=== PATIENT | female | born 1940 | race Caucasian/White ===

== ENCOUNTER 2016-08-21 16:44 | Inpatient (IN) | payer MEDICARE, OTHER ==
[2016-08-21 16:58] VITALS: BP 133/71
--- NOTE | 2016-08-21 17:09 | ED Physician Chart ---
Chief Complaint/HPI - Patient Information Date Seen:: 08/21/16 Time Seen:: 17:02 Chief Complaint:: ?cva History of Present Illness:: pt is chronically vented and dialysis dependent. pt was sent to dialysis today where staff noted a facial droop...call to [facility] was unable to clarify but this seems to be a new finding. pt does have hx of a cva. full code. no known fever. pt did get her dialysis today wo event. Allergies:: Allergies Allergy/AdvReac Type Severity Reaction Status Date / Time No Known Allergies Allergy Verified 08/21/16 16:57 Vitals:: Vital Signs - 8 hr 08/21/16 16:58 BP 133/71 Historian:: EMS, Medical Records Review:: Transfer documents Reviewed, Patient unable to respond Review of Systems - Review of Systems General/Constitutional: No fever, No chills, No weight loss, No weakness, No diaphoresis, No edema, No loss of appetite, Other (nonverbal pt. currently not responsive. hx is severely ltd) Skin: No skin lesions, No rash, No bruising Head: No headache, No light-headedness Eyes: No loss of vision, No pain, No diplopia ENT: No earache, No nasal drainage, No sore throat, No tinnitus Neck: No neck pain, No swelling, No thyromegaly, No stiffness, No mass noted, Other (tracheostomy) Cardio Vascular: No chest pain, No palpitations, No PND, No orthopnea, No edema Pulmonary: No SOB, No cough, No sputum, No wheezing, Other (chronically vent dependent w tracheostomy) GI: No nausea, No vomiting, No diarrhea, No pain, No melena, No hematochezia, No constipation, No hematemesis G/U: No dysuria, No frequency, No hematuria Musculoskeletal: No bone or joint pain, No back pain, No muscle pain, Other ( recent saccral wound was planned to start amikacin today at [facility]) Endocrine: No polyuria, No polydipsia Psychiatric: Other (vented..cant speak) Hematopoietic: No bruising, No lymphadenopathy Allergic/Immuno: No urticaria, No angioedema Neurological: No paresthesia, Seizure (shaking in ed?), No vertigo, Other ( prior cva) Past Medical History - Past Medical History Past Medical History: HTN, DM, CAD, CHF, CVA/TIA, PUD/GERD, ESRD (dialysis dependence), Other (acute/chronic resp failure, sacral wound) Social History: Care Facility Surgical History: other (tracheostomy) Medication: Reviewed Family Medical History - Family Member Daughter History Unknown: Yes Physical Exam - Physical Examination General/Constitutional: Awake, Well-developed, well-nourished, No distress, Non- toxic appearing Head: Atraumatic Eyes: Lids, conjuctiva normal, PERRL, EOMI Skin: Nl inspection, No rash, No skin lesions, No ecchymosis, Well hydrated, No lymphadenopathy ENMT: External ears, nose nl, Nasal exam nl, Lips, teeth, gums nl Other ENMT comments:: tracheostomy site ok left facial droop? w drooling to l side. pupils midrange and reactive but do not track me. pt cant follow commands. some whole body twitching mvt noted briefly .. Neck: Nontender, Full ROM w/o pain, No JVD, No nuchal rigidity, No bruit, No mass, No stridor Respiratory: Nl effort/Exclusion, Clear to Auscultation, No Wheeze/Rhonchi/Rales Cardio Vascular: RRR, No murmur, gallop, rubs, NL S1 S2 GI: No tenderness/rebounding/guarding, No organomegaly, No hernia, Normal BS's, Nondistended, No mass/bruits, No McBurney tenderness : No CVA tenderness Extremities: No tenderness or effusion, Full ROM, normal strength in all extremities, No edema, Normal digits & nails Other Extremities comments:: large deep saccral wound clean no drainage. Other Neuro/Psych comments:: neuro exam difficult given pts alt loc. prior cva by notes. l facial droop. Misc: normal gait, Normal back, No paraspinal tenderness Labs/Radiology/EKG Results - Lab Results Results: Laboratory Tests 08/21/16 08/21/16 08/21/16 17:20 17:20 17:20 WBC 21.3 H* RBC 3.42 L Hgb 11.1 L Hct 32.8 L MCV 95.9 MCH 32.4 H MCHC Differential 33.8 RDW 22.4 H Plt Count 209 MPV 13.6 Band Neutrophils % 8 Neutrophils (Manual) 80 Lymphocytes 8 L Monocytes 4 Eosinophils 0 Nucleated RBCs 2.0 H Platelet Estimate ADEQUATE Platelet Morphology GIANT PLATELETS SEEN Polychromasia 2+ Anisocytosis 1+ RBC Morph Micro Appear ABNORMAL PT INR PTT (Actin FS) Sodium 139 Potassium 3.5 Chloride 101 Carbon Dioxide 23.9 Anion Gap 17.6 H BUN 82 H* Creatinine 2.4 H Est GFR ( Amer) TNP Est GFR (Non-Af Amer) TNP BUN/Creatinine Ratio 34.2 Glucose 81 Calcium 9.1 Total Bilirubin 0.9 AST 28 ALT 19 Alkaline Phosphatase 257 H Troponin I 0.67 H* Total Protein 7.1 Albumin 2.6 L Globulin 4.5 Albumin/Globulin Ratio 0.6 L 08/21/16 18:00 WBC RBC Hgb Hct MCV MCH MCHC Differential RDW Plt Count MPV Band Neutrophils % Neutrophils (Manual) Lymphocytes Monocytes Eosinophils Nucleated RBCs Platelet Estimate Platelet Morphology Polychromasia Anisocytosis RBC Morph Micro Appear PT 14.9 H INR 1.47 H PTT (Actin FS) > 120.0 H* Sodium Potassium Chloride Carbon Dioxide Anion Gap BUN Creatinine Est GFR ( Amer) Est GFR (Non-Af Amer) BUN/Creatinine Ratio Glucose Calcium Total Bilirubin AST ALT Alkaline Phosphatase Troponin I Total Protein Albumin Globulin Albumin/Globulin Ratio - Radiology Results Results: cxr nad/chronic changes ct head chronic changes, no acute bleed. old rt centrum semiovale infarct, old rt cerebral peduncle infarct, lacunar infarcts, asvd, sinusitus - EKG Interpretations EKG Time:: 17:20 Rhythm: nsr [place]: 57 Rate: 86 Comments:: wnl ED Septic Shock - . Is Septic Shock (SBP<90, OR Lactate>4 mmol\L) present?: No - <6hrs of presentation: Vital Signs: Vital Signs - 8 hr 08/21/16 16:58 BP 133/71 Reassessment (Disposition) - Reassessment Reassessment:: ...delay in difficult time reaching DrMega x 3-4 hrs..abx w levaquin ordered (10;12p)case dw dr vicente. not much evidence for a acute cva (but pt is impossible to get a good neuro exam on currently)...however high wbc is of concern and have given 1x levoquin 500 iv...would dec further doses for renal dz. Reassessment Condition:: Improved - Diagnosis Diagnosis:: 1 alt mental status...poss cva 2 seccral decubital ulcer 3 known dilaysis / renal failure pt 4 old large decubital wound - Patient Disposition Admitted to:: ICU Condition at Disposition:: Improved
[2016-08-21 17:46] LABS: HEMATOCRIT 32.8 % (35.0-45.0); HEMOGLOBIN 11.1 gm/dL (11.7-16.1); MEAN CELL VOLUME 95.9 fl (81-100); MEAN CORPUSCULAR HEMOGLOBIN 32.4 pg (27.0-31.0); MEAN CORPUSCULAR HGB CONC 33.8 pg (28.0-36.0); MEAN PLATELET VOLUME 13.6 fl; PLATELET COUNT 209 Th/cmm (150-400); RED BLOOD COUNT 3.42 Mil/cmm (3.80-5.20); RED CELL DISTRIBUTION WIDTH 22.4 % (11.5-20.0)
[2016-08-21 17:54] LABS: WHITE BLOOD COUNT 21.3 Th/cmm (4.8-10.8)
[2016-08-21 18:18] LABS: ANISOCYTOSIS 1+; BAND NEUTROPHILE 8 % (0-10); EOSINOPHIL 0 % (0-5); NEUTROPHILS 80 % (40-80); PLATELET ESTIMATE ADEQUATE (NORMAL); PLATELET MORPHOLOGY GIANT PLATELETS SEEN (NORMAL); POLYCHROMASIA 2+; TOTAL CELLS COUNTED 100
[2016-08-21 18:23] LABS: ALB/GLOB RATIO 0.6 (1.0-1.8); ALKALINE PHOSPHATASE 257 U/L (34-104); ANION GAP 17.6 (7.0-16.0); BILIRUBIN,TOTAL 0.9 mg/dL (0.3-1.0); BUN/CREATININE RATIO 34.2; CALCIUM SERUM 9.1 mg/dL (8.6-10.3); CARBON DIOXIDE 23.9 mEq/L (21.0-31.0); CHLORIDE 101 mEq/L (98-107); CREATININE - SERUM 2.4 mg/dL (0.6-1.2); GLUCOSE 81 mg/dL (70-105); POTASSIUM SERUM 3.5 mEq/L (3.5-5.1); SGOT 28 U/L (13-39); SGPT/ALT 19 U/L (7-52); SODIUM SERUM 139 mEq/L (136-145)
[2016-08-21 18:38] LABS: BUN - UREA NITROGEN 82 mg/dL (7-25)
[2016-08-21] MEDS ORDERED: Levofloxacin 500mg/100mL 500 MG/100 ML BAG IV ONE ×2 (19:47→20:51)
[2016-08-21] MEDS ORDERED: Chlorhexidine Gluconate 0.12% 15mL Mouthwash MM SCH (20:00)
[2016-08-21 20:33] LABS: INR 1.47 (0.5-1.4); PROTHROMBIN TIME (TEST) 14.9 SECONDS (9.5-11.5)
[2016-08-22 05:36] LABS: HEMATOCRIT 35.5 % (35.0-45.0); HEMOGLOBIN 11.7 gm/dL (11.7-16.1); MEAN CELL VOLUME 96.3 fl (81-100); MEAN CORPUSCULAR HEMOGLOBIN 31.6 pg (27.0-31.0); MEAN CORPUSCULAR HGB CONC 32.9 pg (28.0-36.0); PLATELET COUNT 174 Th/cmm (150-400); RED BLOOD COUNT 3.69 Mil/cmm (3.80-5.20); RED CELL DISTRIBUTION WIDTH 22.7 % (11.5-20.0); WHITE BLOOD COUNT 18.7 Th/cmm (4.8-10.8)
[2016-08-22 06:02] LABS: ALB/GLOB RATIO 0.6 (1.0-1.8); ALKALINE PHOSPHATASE 260 U/L (34-104); ANION GAP 16.6 (7.0-16.0); BILIRUBIN,TOTAL 0.9 mg/dL (0.3-1.0); BUN - UREA NITROGEN 79 mg/dL (7-25); BUN/CREATININE RATIO 30.4; CALCIUM SERUM 9.2 mg/dL (8.6-10.3); CARBON DIOXIDE 23.7 mEq/L (21.0-31.0); CHLORIDE 100 mEq/L (98-107); CHOLESTEROL 78 mg/dL (<200); CREATININE - SERUM 2.6 mg/dL (0.6-1.2); GLUCOSE 49 mg/dL (70-105); MAGNESIUM 2.5 mg/dL (1.9-2.7); POTASSIUM SERUM 4.3 mEq/L (3.5-5.1); SGOT 29 U/L (13-39); SGPT/ALT 19 U/L (7-52); SODIUM SERUM 136 mEq/L (136-145); TRIGLYCERIDES 184 mg/dL (<150)
[2016-08-22] MEDS ORDERED: GLUCAGON HCl 1 MG KIT IM PRN (06:25)
[2016-08-22] MEDS ORDERED: Dextrose 50% 50 mL Abboject IVP ONE (06:58)
[2016-08-22] MEDS: Dextrose 50% 50 mL Abboject IVP PRN ×2 (07:04→17:15)
[2016-08-22] MEDS ORDERED: Albuterol Nebulizer 2.5mg/3mL HHN PRN (07:35)
[2016-08-22] MEDS: INSULIN ASPART SLIDING SCALE 100 UNITS/ML UNIT SUBQ SCH ×4 (08:08→21:23)
[2016-08-22 08:10] LABS: BAND NEUTROPHILE 4 % (0-10); NEUTROPHILS 90 % (40-80); TOTAL CELLS COUNTED 100
[2016-08-22 08:11] LABS: ANISOCYTOSIS 1+; PLATELET ESTIMATE ADEQUATE (NORMAL); PLATELET MORPHOLOGY NORMAL (NORMAL); POLYCHROMASIA 1+
[2016-08-22] MEDS: Pantoprazole 40 mg/Packet PO SCH (08:33)
[2016-08-22] MEDS: Insulin Detemir 100 units/mL 10mL Vial SUBQ SCH ×2 (08:33→21:22)
[2016-08-22] MEDS ORDERED: metroNIDAZOLE 500mg/NS 100mL 500 MG/100 ML BAG IV SCH (09:00)
--- NOTE | 2016-08-22 11:18 | History & Physical ---
CHIEF COMPLAINT: Facial droop. HISTORY OF PRESENT ILLNESS: This is a 75-year-old lady with multiple medical problems who resides in [facility]. She has a history of multiple strokes with some level of encephalopathy, chronic respiratory failure, vent dependent with trach placement, history of PEG placement, renal insufficiency on hemodialysis, CAD, CHF, chronic anemia, hypertension and decubitus ulcer on the coccygeal area. The patient was receiving dialysis yesterday when it was noted that she had a facial droop unsure as to which side it was, but the patient arrived via 911 to the Emergency Room where the apparent droop had resolved per family members. She underwent basic lab testing, which yielded a white count of 21.3 and a troponin of 0.67. Given her comorbidities and her current findings, the patient was admitted to ICU for further management and care. PERTINENT FINDINGS ON ADMISSION: Include a CT of the brain showing atrophy, old right centrum semiovale infarct, old right cerebral peduncle infarct, lacunar infarcts, ASVD and sinusitis. The patient at this time appears to be comfortable with no shortness of breath or major congestion. PAST MEDICAL HISTORY: As noted above, also anasarca and insulin-dependent diabetes. PAST SURGICAL HISTORY: Include trach and PEG placement. SOCIAL HISTORY: Does not smoke nor drink, chronically debilitated for the last year or so. Lives at a subacute facility. FAMILY HISTORY: Unremarkable. ALLERGIES: NKDA. OUTPATIENT MEDICATIONS: Tylenol 160 mg q. 4 p.r.n. for pain, albuterol inhalation therapy q. 6 p.r.n. for shortness of breath, ascorbic acid 500 mg every day, detemir insulin 18 units q. 12, she is also on insulin sliding scale, midodrine 10 mg every Saturday and Protonix 40 mg every day. REVIEW OF SYSTEMS: Unable to be done given patient's condition. PHYSICAL EXAMINATION: VITAL SIGNS: Temperature 97.8. She has been afebrile since admission, pulse is 76-80, respirations 12, BP 117/61, satting 100% on 35% FiO2. GENERAL: She is a well-developed, well-nourished female, currently awake on vent and appears to be in no distress. Does not follow commands. Trach in place , midline. NECK: There is no JVD noted. No LAD. CARDIOVASCULAR: Regular rate and rhythm without any murmurs. LUNGS: Decreased at the bases, but overall clear to auscultation. ABDOMEN: Soft, supple, nontender, nondistended, normoactive bowel sounds. EXTREMITIES: There is trace edema in lower extremities. NEUROLOGIC: Not able to be performed. LABORATORY DATA: White count 21.3, H and H 11/32 and a platelet count of 209. INR is 1.47. Chemistry shows a gap of 17, BUN of 82 and a creatinine of 2.4, glucose 81, calcium 9.1, AST 20, ALT 19, alkaline phosphatase 257. Troponins 0.67, albumin 2.6. Triglycerides 184. Cholesterol 78, LDL 33, HDL 22. DIAGNOSTICS: Please refer to the HPI. EKG shows sinus rhythm at a rate of 85. There are atrial premature complexes. X-ray per ER staff interpretation, no acute evidence of infiltrates. IMPRESSION: 1. Leukocytosis. Differential would include infectious etiology, although right now, there is no clear source versus leukomoid reaction. The patient has been pancultured and will follow up with a followup x-ray and sputum C and S. Also, her decubitus ulcer has been cultured. We will also have to rule out any intraabdominal process given her elevated alk phos level. 2. Transient facial drooping, resolved. 3. History of multiple cerebrovascular accidents with encephalopathy. 4. Chronic respiratory failure, appears to be stable. Continue with current vent settings and trach care. Pulmonary eval also be asked for further management. 5. History of end-stage renal disease and Nephrology eval also be asked for. 6. History of hypertension. 7. History of coronary artery disease/congestive heart failure. 8. History of chronic anemia. PLAN: The patient has been admitted to the ICU for further management and care. As mentioned above, she has been pancultured and has been started on Levaquin daily. She will be kept on nebulizer treatments and she also will be kept on her other medications as scheduled for the time being. Given her elevated alk phos, I will ask for a HIDA scan to be done and will also ask for a UA in case the patient still producing urine. Nephrology eval will also be asked for. Daily labs will be drawn and a followup x-ray will be done as mentioned above. [facility]# [id number] FEMI
[2016-08-22] MEDS ORDERED: VTE Chemical Prophylaxis Screen/Admission MC PRN (11:46)
--- NOTE | 2016-08-22 11:56 | Diagnostic Imaging Report ---
Portable chest x-ray HISTORY: Shortness of breath Prior exams are not available for comparison. There is a poor inspiration. The heart appears enlarged. There is increased density in the left lower hemithorax that may be associated with pleural fluid. Underlying pneumonia and/or atelectasis cannot be excluded. Tracheostomy seen. Vascular catheter tip is situated in the upper region of the right atrium. IMPRESSION: 1. Density left lower hemithorax. The findings may be associated with pleural fluid. Underlying consolidation and/or atelectasis cannot be excluded. 2. Vascular catheter tip situated in the upper region of the right atrium 3. Tracheostomy
[2016-08-22] MEDS: metroNIDAZOLE 500mg/NS 100mL 500 MG/100 ML BAG IV SCH ×2 (12:16→18:16)
--- NOTE | 2016-08-22 12:54 | Diagnostic Imaging Report ---
CT scan of the brain without intravenous contrast HISTORY: Stroke, CVA Total DLP equals 693 CTDI equals 35.1 Axial sections were obtained from the base of the skull to the vertex. There is enlargement of ventricular system along with enlargement of cerebral sulci and subarachnoid cisterns reflecting generalized atrophy. Generalized hypodensity seen throughout the supratentorial and periventricular white matter regions. No mass effect. The findings may be associated with chronic small vessel ischemic disease. A somewhat more discrete 1.5 cm hypodense focus is noted within the right parietal white matter region. Findings suggest changes associated with an old infarct. No acute intracerebral hemorrhage. No extra-axial masses or abnormal fluid collections. Mucosal thickening noted in the ethmoid sinuses. IMPRESSION: 1. Generalized cerebral atrophy 2. Extensive supratentorial white matter changes that may be associated with chronic small vessel ischemic disease 3. Focal hypodensity within the right parietal white matter region without mass effect. The findings are most likely associated with an old infarct. 4. Mucosal thickening within the ethmoid sinuses
[2016-08-22] MEDS ORDERED: Pneumococcal Vaccine 0.5 mL Vial IM ONE (14:20)
--- NOTE | 2016-08-22 16:41 | Diagnostic Imaging Report ---
Bilateral lower extremity Doppler arterial ultrasound exam HISTORY: Pain, peripheral vascular disease Sonographic sector images were obtained through the arterial systems of both legs. Associated Doppler data was obtained. The exam of the right leg demonstrates abnormal monophasic waveforms within the common femoral, superficial femoral, popliteal, anterior tibial, posterior tibial, and dorsalis pedis arteries. Decreased velocities noted throughout the arterial system. Sonographic images demonstrate mild to severe diffuse atherosclerotic changes. There is a diminished ankle-brachial index (0.6). The exam of the left leg demonstrates biphasic waveforms within the common femoral artery. Changes consistent with patient's reported superficial femoral bypass graft noted. Biphasic waveforms are seen within the left popliteal, anterior tibial, posterior tibial, and left dorsalis pedis arteries. Diminished velocities noted below the knee. Ankle brachial index equals 0.95). Sonographic images demonstrate mild severe diffuse atherosclerotic changes through the visualized arteries. IMPRESSION: 1. Evidence of mild to severe severe diffuse atherosclerotic changes bilaterally particularly within the right leg. A CT angiographic study would provide additional detail and assessment.
[2016-08-22] MEDS: Chlorhexidine Gluconate 0.12% 15mL Mouthwash MM SCH (21:13)
[2016-08-23] MEDS ORDERED: Heparin Sod 1,000 Units/mL 10ml HD ONE
--- NOTE | 2016-08-23 01:37 | Admit Criteria Form ---
Admit Criteria Forms - Admit Criteria Diagnosis: MENTAL STATUS CHANGE Clinical Indications for Inpatient Care (Place 'X' for any and all applicable criteria): Ongoing inpatient care may be needed for ANY ONE of the following(1)(2)(3)(5)(6) : [ ]I. Suspected serious etiology (eg, medical disorder, [employer] event) of mental status change [ ]II. Danger to self or others not manageable at lower level of care [ ]III. Grave disability (eg, inability to perform self care necessary at lower level of care) [ ]IV. Agitation or inappropriate behavior interfering with care for primary condition (eg, attempting to discontinue lines or drains prematurely, unable to cooperate with respiratory care) [ ]V. Delirium [A] [D][E] as described by ANY ONE of the following(26): [ ]a) Delirium due to alcohol or sedative [F] withdrawal [ ]b) Delirium of uncertain etiology that has not responded to appropriate empiric treatment [ ]c) Delirium that prevents performance of a life-sustaining function (eg, feeding or hydrating oneself) [ X]. General contraindications and/or Inappropriate clinical situations for Observational Care in patients with Mental Status Change, when ANY ONE of the following is required: [X ]a) Prediction of prolongation of LOS based on ANY ONE of the following may be considered as a contraindication for observational care 2, 3, 4, 5, 6, 7, 8, 9, 10, 11 [X ]i) Age > 65 yrs. [ ]ii) Patient arriving by ambulance [ ]iii) Patient with high acuity [ ]iv) Patient requiring vital sign monitoring [ ]v) Patient on IV medication [ ]b) Systolic blood pressures 180mmHg 3,12 [ ]c) Patient with altered mental status including delirium and other alteration of consciousness, (3) [ ]d) Patient whose discharge disposition will be to a intermediate home or rehabilitation home should not be managed in Emergency Department Observation Unit. CMS rule requires 3 days hospital stay before such placement.3,13 [ ]e) Patient with failure to thrive due to broad array of etiologies 3,16,17 [ ]f) Inability to ambulate 3,14 Extended stay beyond goal length of stay for the primary condition may be needed until ALL of the following are present(3)(5): [ ]a) Underlying medical etiology of mental status change is absent, or has been established and adequately treated [ ]b) Danger to self or others is absent or manageable at lower level of care. [ ]c) Behavior crisis management, including physical or chemical restraints, is not required or available at lower level of car [ ]d) Substance or alcohol withdrawal is absent or manageable at lower level of care. [ ]e) Behavioral symptoms (eg, agitation, somnolence, inappropriate behavior) are absent, or are manageable at lower level of care. The original [facility] content created by [facility] has been revised. The portions of the content which have been revised are identified through the use of italic text or in bold, and [facility] has neither reviewed nor approved the modified material. All other unmodified content is copyright [facility]. Please see references footnoted in the original [facility] edition 2016 Admit Criteria Met?: Yes
[2016-08-23] MEDS: metroNIDAZOLE 500mg/NS 100mL 500 MG/100 ML BAG IV SCH (02:46)
--- NOTE | 2016-08-23 04:45 | Consultation ---
The patient of Dr. Hong. Thank you very much Dr. Hong for this consultation. HISTORY OF PRESENT ILLNESS: This is a 75-year-old female who was admitted from the dialysis center after being found to be altered. The patient has history of chronic respiratory failure, ventilator dependent, residential resident, end-stage renal disease on dialysis. The patient was brought in and was found to have significant leukocytosis. Sepsis was suspected. The patient was started on IV antibiotics and cultures were sent and the patient admitted for further treatment and management. PHYSICAL EXAMINATIONS: GENERAL: The patient appears to be doing better, little bit more alert and not in severe distress. VITAL SIGNS: Temperature of 96.0, pulse 91, respiration 17, blood pressure 170/69, saturation is 99-100%. HEENT: Atraumatic, normocephalic. Pupils reactive to light and accommodation. Ears, nose and throat, normal. NECK: Supple. No JVD. CHEST: There are good breath sounds. Few rhonchi in bases. HEART: Regular rate and rhythm. ABDOMEN: Soft, nontender. EXTREMITIES: No edema. IMAGING: Chest x-ray, infiltrate in left lower lobe, possible effusion. LABORATORY DATA: The WBC is 18.7 down from 21.3, hemoglobin 11.7, hematocrit 35.5, platelets 174. Sodium was 136, potassium 4.3, BUN is 79, creatinine 2.6. IMPRESSION: This is a 75-year-old female with: 1. Chronic respiratory failure. 2. End-stage renal disease, on dialysis. 3. Altered level of consciousness. 4. Sepsis. 5. Pneumonia. PLAN: 1. IV antibiotics. 2. Nebulizer treatment. 3. Ventilator support. 4. Hemodialysis. 5. Follow up cultures. I will follow the patient with you. Thank you very much for this consultation. JOB# [id number]
[2016-08-23 05:02] LABS: HEMATOCRIT 32.4 % (35.0-45.0); HEMOGLOBIN 10.5 gm/dL (11.7-16.1); MEAN CELL VOLUME 97.3 fl (81-100); MEAN CORPUSCULAR HEMOGLOBIN 31.5 pg (27.0-31.0); MEAN CORPUSCULAR HGB CONC 32.3 pg (28.0-36.0); MEAN PLATELET VOLUME 11.9 fl; RED BLOOD COUNT 3.33 Mil/cmm (3.80-5.20); RED CELL DISTRIBUTION WIDTH 22.9 % (11.5-20.0); WHITE BLOOD COUNT 18.1 Th/cmm (4.8-10.8)
[2016-08-23 05:13] LABS: ALB/GLOB RATIO 0.6 (1.0-1.8); ALKALINE PHOSPHATASE 218 U/L (34-104); ANION GAP 18.3 (7.0-16.0); BILIRUBIN,TOTAL 0.8 mg/dL (0.3-1.0); BUN/CREATININE RATIO 29.4; CALCIUM SERUM 8.7 mg/dL (8.6-10.3); CHLORIDE 100 mEq/L (98-107); CREATININE - SERUM 3.1 mg/dL (0.6-1.2); GLUCOSE 169 mg/dL (70-105); POTASSIUM SERUM 4.3 mEq/L (3.5-5.1); SGOT 31 U/L (13-39); SGPT/ALT 17 U/L (7-52); SODIUM SERUM 135 mEq/L (136-145)
[2016-08-23 05:39] LABS: BUN - UREA NITROGEN 91 mg/dL (7-25)
--- NOTE | 2016-08-23 06:27 | Consultation ---
NEPHROLOGY CONSULTATION REQUESTING PHYSICIAN: Dr. Indy Hong. REASON FOR CONSULTATION: End-stage renal disease, dialysis status. HISTORY OF PRESENT ILLNESS: The patient is a 75-year-old female, who is well known to our group. She resides in [facility] and dialyzes over at [facility] on Saturday, , and Saturday schedule. She does have chronic respiratory failure, vent dependent with tracheostomy. She also has a history of multiple CVA, chronic vent-dependent respiratory failure, dysphagia with G-tube, coronary artery disease, congestive heart failure, anemia due to chronic kidney disease, hypertension, and decubitus ulcer in a coccygeal area. The patient apparently was getting her dialysis yesterday at [facility] when she was noted to have a facial droop and the patient subsequently was brought in for further evaluation where she was noted to be having leukocytosis and elevated troponin. She was admitted to ICU for further management, and she is currently undergoing a HIDA scan. She tolerated her dialysis otherwise well yesterday, and we are consulted with regards to her dialysis needs. The patient is unable to give any history. REVIEW OF SYSTEMS: A 14-point is unobtainable. The patient is not verbal. PAST MEDICAL HISTORY: As described in the HPI. 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 PAST SURGICAL HISTORY: Includes trach and PEG. SOCIAL HISTORY: No smoking or alcohol. She lives at [facility]. FAMILY HISTORY: Unremarkable. ALLERGIES: No known drug allergies. INPATIENT MEDICATIONS: Reviewed as per the [facility]. PHYSICAL EXAMINATION: VITAL SIGNS: She is afebrile. Heart rate is in the 80s. Respiratory rate is 14, blood pressure 116/66, and saturation 98% on 30% FiO2. GENERAL: The patient is able to open her eyes, otherwise does not appear to have any apparent distress. HEAD AND EYES: Normocephalic. Sclerae are anicteric. NECK: Her trachea is connected to the vent. CARDIOVASCULAR: S1, S2 present and regular with no murmurs. LUNGS: Clear to auscultation anteriorly. ABDOMEN: Soft, obese, and nontender. EXTREMITIES: Do not show any evidence of edema. She does have a right upper chest Perm-A-Cath, which is intact. DIAGNOSTIC DATA: White count is 18.7, hemoglobin 11.7, and platelet count is 174,000. Sodium is 132, potassium 4.3, bicarbonate 23, BUN is 79, creatinine 2.6, calcium 9.2, and magnesium 2.5. Head CT is showing atrophy, generalized. Chest x-ray, left lower hemithorax density. ASSESSMENT AND PLAN: 1. End-stage renal disease with dialysis status secondary to diabetic glomerulosclerosis and hypertensive nephrosclerosis to dialyze per schedule Saturday, , and Saturday. We will arrange for dialysis tomorrow. 2. Anemia due to chronic kidney disease. Hemoglobin is above goal. No indication for Epogen at this time. 3. Clostridium difficile colitis. Continue with IV Flagyl per primary. 4. Sepsis secondary to Clostridium difficile. Continue antibiotics and monitor. 5. Chronic encephalopathy, monitor, stable. 6. Chronic vent-dependent respiratory failure. Continue with vent management per Pulmonary. 7. Long-term insulin use. Continue to monitor and avoid hypoglycemia. 8. Type 2 diabetes mellitus with renal manifestations, stable. Continue with monitoring. 9. Transient facial drooping, which is resolved. No stroke on CT scan. We will continue with monitoring. This time, I would like to thank Dr. Hong for the consultation. We will follow the patient with you. Please call if any questions or concerns. Thank you very much for allowing us to participate in this patient's care. [facility]# [id number] FEMI
[2016-08-23] MEDS: INSULIN ASPART SLIDING SCALE 100 UNITS/ML UNIT SUBQ SCH ×4 (06:43→21:30)
[2016-08-23] MEDS: Chlorhexidine Gluconate 0.12% 15mL Mouthwash MM SCH ×5 (07:30→20:05)
[2016-08-23] MEDS: Insulin Detemir 100 units/mL 10mL Vial SUBQ SCH ×2 (08:09→21:28)
[2016-08-23] MEDS: Pantoprazole 40 mg/Packet PO SCH (08:10)
[2016-08-23 08:16] LABS: ANISOCYTOSIS 1+; BAND NEUTROPHILE 7 % (0-10); EOSINOPHIL 1 % (0-5); METAMYELOCYTE 1 % (0-0); NEUTROPHILS 80 % (40-80); PLATELET ESTIMATE DECREASED PLATELETS (NORMAL); POLYCHROMASIA 1+; TOTAL CELLS COUNTED 100
[2016-08-23 08:17] LABS: PLATELET MORPHOLOGY NORMAL (NORMAL)
[2016-08-23 09:35] LABS: pH 7.47 (7.35-7.45)
[2016-08-23 09:36] LABS: ABG SOURCE Arterial; ALLEN TEST PASS; BE(B) -0.3 mmol/L (-3.0-3.0); CRITICAL VALUES REPORTED BY PW; FIO2 30; HCO3 22.6 mmol/L (20.0-26.0); MECH RATE 12; MECH VT 500
--- NOTE | 2016-08-23 10:08 | Diagnostic Imaging Report ---
CHEST X-RAY: AP view INDICATION: Congestion COMPARISON: Chest x-ray 08/21/2016 FINDINGS: Support devices are stable. Slight improvement in congestive changes are seen. Small bilateral effusions are noted. Cardiomegaly is noted with atherosclerosis. IMPRESSION: Slight improvement in congestive changes Small bilateral effusions Cardiomegaly and atherosclerotic vascular disease.
--- NOTE | 2016-08-23 10:14 | Diagnostic Imaging Report ---
Nuclear medicine HIDA scan HISTORY: Elevated alkaline phosphatase levels COMPARISON: None Technique/procedure: 5.0 mCi of technetium labeled Choletec was administered intravenously and multiple scintigraphic images were obtained for up to 1 hour. FINDINGS: Prompt hepatic uptake is demonstrated. Gallbladder uptake is seen at 45 minutes. Small bowel uptake was seen at 45 minutes to 1 hour. IMPRESSION: No evidence of acute cholecystitis.
--- NOTE | 2016-08-23 11:12 | General Progress Note ---
Subjective - Review of Systems Service Date: 08/23/16 Events since last encounter: Pt remains alert and awake on ventilator via tracheostomy this morning, otherwise going for sacral decubitus ulcer debridement this afternoon. For HD today. Objective - Results Result Diagrams: 08/23/16 04:30 08/23/16 04:30 Recent Labs: Laboratory Last Values WBC 18.1 Th/cmm (4.8-10.8) H 08/23/16 04:30 RBC 3.33 Mil/cmm (3.80-5.20) L 08/23/16 04:30 Hgb 10.5 gm/dL (11.7-16.1) L 08/23/16 04:30 Hct 32.4 % (35.0-45.0) L 08/23/16 04:30 MCV 97.3 fl (81-100) 08/23/16 04:30 MCH 31.5 pg (27.0-31.0) H 08/23/16 04:30 MCHC Differential 32.3 pg (28.0-36.0) 08/23/16 04:30 RDW 22.9 % (11.5-20.0) H 08/23/16 04:30 Plt Count 174 Th/cmm (150-400) 08/22/16 04:56 MPV 11.9 fl 08/23/16 04:30 Band Neutrophils % 7 % (0-10) 08/23/16 04:30 Neutrophils (Manual) 80 % (40-80) 08/23/16 04:30 Lymphocytes 4 % (20-50) L 08/23/16 04:30 Monocytes 7 % (2-10) 08/23/16 04:30 Eosinophils 1 % (0-5) 08/23/16 04:30 Metamyelocytes 1 % (0-0) H 08/23/16 04:30 Nucleated RBCs 3.0 % (0-0) H 08/23/16 04:30 Platelet Estimate DECREASED PLATELETS (NORMAL) 08/23/16 04:30 Platelet Morphology NORMAL (NORMAL) 08/23/16 04:30 Polychromasia 1+ 08/23/16 04:30 Anisocytosis 1+ 08/23/16 04:30 RBC Morph Micro Appear ABNORMAL (NORMAL) 08/23/16 04:30 PT 14.9 SECONDS (9.5-11.5) H 08/21/16 18:00 INR 1.47 (0.5-1.4) H 08/21/16 18:00 PTT (Actin FS) > 120.0 SECONDS (26.0-38.0) H* 08/21/16 18:00 Specimen Source Arterial 08/23/16 09:15 Sample Site Right Radial 08/23/16 09:15 pH 7.47 (7.35-7.45) H 08/23/16 09:15 pCO2 31.0 mmHg (35.0-45.0) L 08/23/16 09:15 pO2 128.0 mmHg (80.0-100.0) H 08/23/16 09:15 HCO3 22.6 mmol/L (20.0-26.0) 08/23/16 09:15 Base Excess -0.3 mmol/L (-3.0-3.0) 08/23/16 09:15 O2 Saturation 99.0 % (92.0-100.0) 08/23/16 09:15 Jorge Test PASS 08/23/16 09:15 Vent Rate 12 08/23/16 09:15 Inspired O2 30 08/23/16 09:15 Tidal Volume 500 08/23/16 09:15 PEEP 5 08/23/16 09:15 Critical Value PW 08/23/16 09:15 Sodium 135 mEq/L (136-145) L 08/23/16 04:30 Potassium 4.3 mEq/L (3.5-5.1) 08/23/16 04:30 Chloride 100 mEq/L (98-107) 08/23/16 04:30 Carbon Dioxide 21.0 mEq/L (21.0-31.0) 08/23/16 04:30 Anion Gap 18.3 (7.0-16.0) H 08/23/16 04:30 BUN 91 mg/dL (7-25) H* 08/23/16 04:30 Creatinine 3.1 mg/dL (0.6-1.2) H 08/23/16 04:30 Est GFR ( Amer) TNP 08/23/16 04:30 Est GFR (Non-Af Amer) TNP 08/23/16 04:30 BUN/Creatinine Ratio 29.4 08/23/16 04:30 Glucose 169 mg/dL (70-105) H 08/23/16 04:30 POC Glucose 109 MG/DL (70 - 105) H 08/23/16 11:00 Calcium 8.7 mg/dL (8.6-10.3) 08/23/16 04:30 Magnesium 2.5 mg/dL (1.9-2.7) 08/22/16 04:56 Total Bilirubin 0.8 mg/dL (0.3-1.0) 08/23/16 04:30 AST 31 U/L (13-39) 08/23/16 04:30 ALT 17 U/L (7-52) 08/23/16 04:30 Alkaline Phosphatase 218 U/L (34-104) H 08/23/16 04:30 Troponin I 0.67 ng/mL (0.01-0.05) H* 08/21/16 17:20 Total Protein 6.4 gm/dL (6.0-8.3) 08/23/16 04:30 Albumin 2.4 gm/dL (3.7-5.3) L 08/23/16 04:30 Globulin 4.0 gm/dL 08/23/16 04:30 Albumin/Globulin Ratio 0.6 (1.0-1.8) L 08/23/16 04:30 Triglycerides 184 mg/dL (<150) H 08/22/16 04:56 Cholesterol 78 mg/dL (<200) 08/22/16 04:56 LDL Cholesterol Direct 33 mg/dL (75-193) L 08/22/16 04:56 HDL Cholesterol 22 mg/dL (23-92) L 08/22/16 04:56 Lipase 18 U/L (11-82) 08/22/16 04:56 TSH 3.51 uIU/ml (0.34-5.60) 08/22/16 04:56 - Physical Exam Vitals and I&O: Vital Signs Temp 97.1 F 08/23/16 08:00 Pulse 99 08/23/16 10:44 Resp 16 08/23/16 10:00 BP 122/67 08/23/16 10:00 Pulse Ox 100 08/23/16 10:44 Intake & Output 08/22/16 08/23/16 08/23/16 18:59 06:59 18:59 Intake Total 300 450 50 Output Total 100 1 Balance 200 449 50 Intake: Intake, IV Amount 150 150 50 Cefepime 1 gm In Dextrose 50 50 50 5% 50 ml @ 100 mls/hr IV Q12HR [facility] Rx#:[id number] metroNIDAZOLE 500mg/NS 100 100 100mL 500 mg In 100 ml @ 100 mls/hr IV Q8H [facility] Rx# :[id number] Tube Feeding 150 300 Output: Urine 0 0 Stool 100 1 Other: Stool Characteristics Liquid Liquid Active Medications: Current Medications Acetaminophen (Tylenol 650mg/20.3ml Suspension) 160 mg PO Q4HR PRN PRN Reason: pain Albuterol Sulfate (Albuterol 2.5mg/3ml Neb Ud) 2.5 mg HHN Q6HR PRN PRN Reason: Shortness of Breath Stop: 10/21/16 07:34 Ascorbic Acid (Vitamin C) 500 mg PO DAILY [facility] Stop: 10/21/16 08:59 Last Admin: 08/23/16 08:09 Dose: Not Given Chlorhexidine Gluconate (Peridex) 15 ml MM 08,1999 [facility] Stop: 10/21/16 19:59 Last Admin: 08/23/16 07:30 Dose: 15 ml Dextrose (D50w) 50 ml IVP PRN PRN PRN Reason: Blood Glucose less than 70 Stop: 10/21/16 06:24 Last Admin: 08/22/16 17:15 Dose: 50 ml Dextrose (Glutose 40%) 18.75 gm PO PRN PRN PRN Reason: Blood Glucose less than 70 Stop: 10/21/16 06:24 Glucagon (Glucagen) 1 mg IM PRN PRN PRN Reason: Blood Glucose less than 70 Stop: 10/21/16 06:24 Cefepime HCl 1 gm/ Dextrose 50 mls @ 100 mls/hr IV Q12HR [facility] Stop: 10/21/16 08:59 Last Infusion: 08/23/16 08:35 Dose: Infused Vancomycin HCl 1.25 gm/ Sodium (Chloride) 250 mls @ 165 mls/hr IV 1000 ONE Stop: 08/23/16 11:30 Insulin Aspart (Novolog Insulin Sliding Scale) 0 units SUBQ ACHS [facility] PRN Reason: Protocol Stop: 10/21/16 07:29 Last Admin: 08/23/16 06:43 Dose: Not Given Insulin Detemir (Levemir Insulin) 18 units SUBQ Q12HR [facility] PRN Reason: Protocol Stop: 10/21/16 08:59 Last Admin: 08/23/16 08:09 Dose: Not Given Midodrine (Proamatine) 10 mg PO QTUE [facility] Stop: 10/20/16 22:44 Last Admin: 08/22/16 03:52 Dose: 10 mg Miscellaneous (Clinical Monitoring) 1 ea PRN PRN PRN Reason: RENAL DOSING Stop: 10/21/16 07:35 Miscellaneous (Vte Chemical Prophylaxis Screen/ Admission) 1 ea PRN PRN PRN Reason: PROTOCOL Stop: 10/21/16 11:45 Miscellaneous (Vancomycin Iv Per Pharmacy) 1 ea PRN [facility] Stop: 10/22/16 08:44 Pantoprazole Sodium (Protonix) 40 mg PO DAILY [facility] Stop: 10/21/16 08:59 Last Admin: 08/23/16 08:10 Dose: Not Given General: Alert HEENT: Atraumatic Neck: Supple Cardiovascular: Regular rate Lungs: Clear to auscultation Abdomen: Bowel sounds, Soft Extremities: Edema (sl) - Procedures Procedures: Procedures Procedure Code Date RESPIRATORY VENTILATION, LESS THAN 24 CONSECUTIVE HOURS [id number] 08/21/16 VENT MGMT INPAT INIT DAY 35081 08/21/16 Assessment/Plan - Assessment Assessment: ESRD on HD, TTS Anemia secondary to ESRD Renal osteodystrophy Sacral decubitus ulcer - Plan Plan: HD today after OR, labs appear to be in range, K nl. OK to proceed to surgery w/ o HD prior from renal standpoint BP controlled, HGB in range, no need for MARTINEZ at this time monitor Continue HD TTS
[2016-08-23] MEDS ORDERED: ISOFLURANE 100 ML BOTTLE INH ONE (12:25)
[2016-08-23] MEDS ORDERED: Meperidine 25 mg/mL 1mL Syr IVP PRN (13:49)
[2016-08-23] MEDS ORDERED: Lactated Ringer 1,000 ML IV SCH (14:00)
--- NOTE | 2016-08-23 14:51 | History & Physical ---
REFERRING PHYSICIAN: Dr. Hong. REASON FOR CONSULTATION: Decubitus ulcer. Thank you for referring this patient. This 75-year-old female who comes in with chief complaint of facial droop. She had a history of CVA in the past. The CT of the brain on this admission shows atrophy. No new infarct. Additional problems include in the last 2 weeks, development of sacral decubitus ulcer. She is on the vent via tracheostomy. There is a PEG in place for feeding. PAST MEDICAL HISTORY: She has history of CHF, chronic kidney, hypertension, and hemodialysis treatment. LABORATORY STUDIES: On this admission, WBC elevated to 18,000, hemoglobin 10.5. Chemistry: BUN is 91, creatinine of 3.1, potassium is normal at 4.3. PHYSICAL EXAMINATION: GENERAL: The patient is a poorly responsive. Family is at bedside. SKIN: Turning the patient underside, there is a large decubitus ulcer in the sacrum measuring approximately 15 cm in its greatest diameter. Gilson necrotic tissues are noted. The patient is incontinent. IMPRESSION: 1. Stage IV sacral decubitus ulcer. 2. History of end-stage renal disease, on hemodialysis. 3. Respiratory failure, on vent. 4. PEG placement for feeding. RECOMMENDATIONS: This patient will need excisional debridement of the sacral decubitus ulcer with application of wound VAC. If patient can tolerate diverting colostomy, this would be ideal. ____ to grandson and he has agreed to sign the consent for surgery. JOB# [id number]
--- NOTE | 2016-08-23 18:21 | Operative Report ---
PREOPERATIVE DIAGNOSES: 1. Stage IV sacral decubitus ulcer. 2. End-stage renal disease. 3. Diabetes mellitus. 4. Respiratory failure, on vent via trach. POSTOPERATIVE DIAGNOSES: 1. Stage IV sacral decubitus ulcer. 2. End-stage renal disease. 3. Diabetes mellitus. 4. Respiratory failure, on vent via trach. Size of ulcer is 12 x 15 cm, depth of the ulcer all the way to the sacral bone. ESTIMATED BLOOD LOSS: 5 mL. OPERATION DONE: 1. Excisional debridement. 2. Partial excision of protruding sacral bone. 2. Application of wound VAC. SURGEON: Vinny Goldman M.D. ANESTHESIA: MAC. ANESTHESIOLOGIST: Butch Gaines M.D. DESCRIPTION OF PROCEDURE: The patient was given IV sedation. She was then placed in the right lateral decubitus position. The ulcer was prepped with Betadine and draped in appropriate fashion. The patient is well sedated and poorly responsive. The excisional debridement was carried out without difficulty with the patient nonreacting to the procedure. Excision of the tissues was carried all the way down to the bone where a part of the coccyx was protruding. This was excised to allow for better healing. Following satisfactory hemostasis, a silver sponge was applied and connected to wound VAC. The patient tolerated the procedure well. JOB# [id number]
[2016-08-23] MEDS ORDERED: Levofloxacin 250mg/50mL 250 MG/50 ML BAG IV SCH (21:00)
[2016-08-24 05:08] LABS: HEMOGLOBIN 9.7 gm/dL (11.7-16.1); MEAN CELL VOLUME 99.2 fl (81-100); MEAN CORPUSCULAR HEMOGLOBIN 33.2 pg (27.0-31.0); MEAN CORPUSCULAR HGB CONC 33.5 pg (28.0-36.0); MEAN PLATELET VOLUME 11.6 fl; PLATELET COUNT 141 Th/cmm (150-400); RED BLOOD COUNT 2.92 Mil/cmm (3.80-5.20); RED CELL DISTRIBUTION WIDTH 22.4 % (11.5-20.0); WHITE BLOOD COUNT 15.1 Th/cmm (4.8-10.8)
[2016-08-24 05:51] LABS: ANION GAP 18.5 (7.0-16.0); BUN - UREA NITROGEN 65 mg/dL (7-25); CALCIUM SERUM 8.3 mg/dL (8.6-10.3); CARBON DIOXIDE 20.8 mEq/L (21.0-31.0); CHLORIDE 99 mEq/L (98-107); CREATININE - SERUM 2.5 mg/dL (0.6-1.2); GLUCOSE 367 mg/dL (70-105); POTASSIUM SERUM 3.3 mEq/L (3.5-5.1); SODIUM SERUM 135 mEq/L (136-145)
[2016-08-24 06:07] LABS: ANISOCYTOSIS 1+; BAND NEUTROPHILE 6 % (0-10); BASOPHIL 1 % (0-3); CORRECTED WBC 13.9 Th/cmm (4.8-10.8); NEUTROPHILS 84 % (40-80); PLATELET MORPHOLOGY NORMAL (NORMAL); POLYCHROMASIA 1+; TOTAL CELLS COUNTED 100
[2016-08-24 06:08] LABS: PLATELET ESTIMATE DECREASED PLATELETS (NORMAL)
[2016-08-24] MEDS: INSULIN ASPART SLIDING SCALE 100 UNITS/ML UNIT SUBQ SCH ×4 (06:47→21:18)
[2016-08-24] MEDS: Chlorhexidine Gluconate 0.12% 15mL Mouthwash MM SCH ×4 (08:00→20:02)
[2016-08-24] MEDS: Insulin Detemir 100 units/mL 10mL Vial SUBQ SCH ×2 (09:00→21:19)
[2016-08-24] MEDS: Pantoprazole 40 mg/Packet PO SCH (09:00)
[2016-08-24] MEDS: KCL 20mEq/100mL Premix 20 MEQ/100 ML PIGGYBACK IV SCH ×3 (11:13→13:44)
[2016-08-24] MEDS ORDERED: Probiotic Screen MC PRN (14:48)
[2016-08-24] MEDS ORDERED: AMIKACIN IV SCH (17:00)
[2016-08-24] MEDS ORDERED: DEXTROSE 5% IV SCH (17:00)
--- NOTE | 2016-08-24 22:23 | Discharge Summary ---
ADMITTING DIAGNOSES: 1. Leukocytosis. 2. Stage IV infected decubitus ulcer. 3. Transient facial drooping. 4. Elevated troponins. SECONDARY DIAGNOSES: 1. History of multiple cerebrovascular accidents with mild chronic encephalopathy. 2. Chronic respiratory failure, on vent and tracheostomy care. 3. History of end-stage renal disease, on hemodialysis. 4. Essential hypertension. 5. History of coronary artery disease. 6. History of congestive heart failure. 7. History of chronic anemia. DISCHARGE DIAGNOSES: 1. Leukocytosis, improved. 2. Stage IV infected decubitus ulcer status post debridement. 3. Resolved facial drooping. CONSULTANTS: Dr. Goldman, General Surgery and Dr. Valdez, Pulmonary Medicine. Dr. Alonso, Nephrology. ZAY Rainey MAJOR PROCEDURES: Head CT on 08/21/2016, generalized atrophy, extensive supratentorial white matter changes, that might be associated with chronic small vessel ischemic disease, focal hypodensity in the right parietal white matter region without mass effect consistent with an old infarct. There was a HIDA scan done on 08/22/2016, negative for acute cholecystitis. There was an arterial duplex ultrasound of lower extremities showing evidence of [id number] diffuse atherosclerotic changes bilaterally, particularly on the right leg. There was a sacral decubitus ulcer, stage IV, debridement done by Dr. Goldman with no complications. It was excisional debridement. Partial excision of protruding sacral bone and application of a wound bag. BRIEF HOSPITAL COURSE: This is a 75-year-old female who presented from the [facility] for evaluation of facial droop, which was more noticeable than her baseline. Of note, she has multiple medical problems. Please see above. She came into the ER and basic workup revealed a white count of 21.3, a troponin of 0.67, and CT that was essentially negative, please see above. Her facial droop had resolved by the time she came into the ER. Family numbers stated that she appeared to be within her normal physical appearance. The patient was admitted to the ICU and was placed on empiric antibiotics for possible pneumonia and decubitus wound infection. Pulmonary as well as Nephrology eval were asked for, for management of vent and management of hemodialysis. She also was noted to have mild elevation of her alkaline phosphatase. Therefore, a HIDA scan was also done. Her white count did improve by hospital day #2. It went down to 18.7. Given the extent of her decubitus ulcer, a surgical eval was also asked for and the debridement was then as mentioned above. Post-debridement, she has remained stable with no spikes in temperature and her white count has gone down to 15.1. DISCHARGE MEDICATIONS: Tylenol 160 q.4 hours p.r.n. for pain, DuoNeb q.6h. p.r.n. for shortness of breath, vitamin C 500 mg every day, cefepime 1 g q.12h. for 10 days, peridex 15 mL every day, insulin sliding scale, Levemir 18 units q.12h., proamatine 10 mg every Saturday and vancomycin per pharmacy for 21 days. zosyn iv q6 x 10 days CONDITION ON DISCHARGE: Stable. DISPOSITION: The patient will be discharged to [facility] under the care of Dr. Rankin. JOB# [id number] [facility]
[2016-08-25] MEDS: INSULIN ASPART SLIDING SCALE 100 UNITS/ML UNIT SUBQ SCH ×4 (06:39→21:22)
[2016-08-25 07:43] LABS: HEMATOCRIT 29.2 % (35.0-45.0); HEMOGLOBIN 9.7 gm/dL (11.7-16.1); MEAN CELL VOLUME 99.1 fl (81-100); MEAN CORPUSCULAR HGB CONC 33.3 pg (28.0-36.0); MEAN PLATELET VOLUME 11.7 fl; PLATELET COUNT 133 Th/cmm (150-400); RED BLOOD COUNT 2.95 Mil/cmm (3.80-5.20); RED CELL DISTRIBUTION WIDTH 23.6 % (11.5-20.0); WHITE BLOOD COUNT 15.8 Th/cmm (4.8-10.8)
[2016-08-25 07:54] LABS: BUN/CREATININE RATIO 27.9; CALCIUM SERUM 8.4 mg/dL (8.6-10.3); CARBON DIOXIDE 20.4 mEq/L (21.0-31.0); CHLORIDE 99 mEq/L (98-107); CREATININE - SERUM 2.9 mg/dL (0.6-1.2); GLUCOSE 362 mg/dL (70-105); POTASSIUM SERUM 3.4 mEq/L (3.5-5.1); SODIUM SERUM 131 mEq/L (136-145)
[2016-08-25 08:09] LABS: BUN - UREA NITROGEN 81 mg/dL (7-25)
[2016-08-25] MEDS: Insulin Detemir 100 units/mL 10mL Vial SUBQ SCH ×3 (08:21→16:11)
[2016-08-25] MEDS: Lactobacillus Rhamnosus 10 Billion CFU Capsule PO SCH (08:22)
[2016-08-25] MEDS: Chlorhexidine Gluconate 0.12% 15mL Mouthwash MM SCH ×2 (08:22→21:05)
[2016-08-25] MEDS: Pantoprazole 40 mg/Packet PO SCH (08:22)
[2016-08-25 08:56] LABS: ANISOCYTOSIS 2+; BAND NEUTROPHILE 4 % (0-10); NEUTROPHILS 80 % (40-80); PLATELET ESTIMATE DECREASED PLATELETS (NORMAL); PLATELET MORPHOLOGY NORMAL (NORMAL); POLYCHROMASIA 1+; TOTAL CELLS COUNTED 100
[2016-08-25] MEDS ORDERED: KCL 20mEq/100mL Premix 20 MEQ/100 ML PIGGYBACK IV SCH (11:30)
[2016-08-25] MEDS ORDERED: KCL 20mEq/100mL Premix Bag IV SCH (14:30)
[2016-08-25] MEDS: DEXTROSE 5% IV SCH (16:13)
[2016-08-25] MEDS: AMIKACIN IV SCH (16:13)
[2016-08-26 05:18] LABS: % BASOPHILS 0.7 % (0.0-2.0); % EOSINOPHILS 0.9 % (0.0-5.0); % LYMPHOCYTES 8.9 % (20.0-50.0); % MONOCYTES 10.6 % (2.0-10.0); % NEUTROPHILS 78.9 % (40.0-80.0); MEAN CELL VOLUME 100.6 fl (81-100); MEAN CORPUSCULAR HEMOGLOBIN 32.5 pg (27.0-31.0); MEAN CORPUSCULAR HGB CONC 32.3 pg (28.0-36.0); MEAN PLATELET VOLUME 10.9 fl; NEUTROPHILE ABSOLUTE 10.6 Th/cmm (1.8-8.0); PLATELET COUNT 117 Th/cmm (150-400); RED BLOOD COUNT 3.08 Mil/cmm (3.80-5.20); RED CELL DISTRIBUTION WIDTH 23.4 % (11.5-20.0); WHITE BLOOD COUNT 13.4 Th/cmm (4.8-10.8)
[2016-08-26 05:31] LABS: ANION GAP 16.9 (7.0-16.0); BUN - UREA NITROGEN 62 mg/dL (7-25); BUN/CREATININE RATIO 25.8; CALCIUM SERUM 8.1 mg/dL (8.6-10.3); CARBON DIOXIDE 19.2 mEq/L (21.0-31.0); CHLORIDE 101 mEq/L (98-107); CREATININE - SERUM 2.4 mg/dL (0.6-1.2); GLUCOSE 253 mg/dL (70-105); MAGNESIUM 1.9 mg/dL (1.9-2.7); POTASSIUM SERUM 3.1 mEq/L (3.5-5.1); SODIUM SERUM 134 mEq/L (136-145)
[2016-08-26 05:42] LABS: VANCOMYCIN RANDOM 18.2 ug/mL (5.0-40.0)
[2016-08-26] MEDS: INSULIN ASPART SLIDING SCALE 100 UNITS/ML UNIT SUBQ SCH ×4 (06:59→20:36)
[2016-08-26] MEDS: Insulin Detemir 100 units/mL 10mL Vial SUBQ SCH (08:26)
[2016-08-26] MEDS: Chlorhexidine Gluconate 0.12% 15mL Mouthwash MM SCH ×2 (08:26→20:41)
[2016-08-26] MEDS: Lactobacillus Rhamnosus 10 Billion CFU Capsule PO SCH (08:27)
[2016-08-26] MEDS: Pantoprazole 40 mg/Packet PO SCH (08:27)
[2016-08-26] MEDS ORDERED: Insulin Detemir 100 units/mL 10mL Vial SUBQ SCH (11:15)
[2016-08-26] MEDS: KCL 20mEq/100mL Premix 20 MEQ/100 ML PIGGYBACK IV SCH ×2 (12:10→14:42)
[2016-08-26] MEDS: DEXTROSE 5% IV SCH (18:38)
[2016-08-26] MEDS: AMIKACIN IV SCH (18:38)
[2016-08-27 05:21] LABS: HEMATOCRIT 31.1 % (35.0-45.0); HEMOGLOBIN 10.2 gm/dL (11.7-16.1); MEAN CELL VOLUME 100.1 fl (81-100); MEAN CORPUSCULAR HEMOGLOBIN 32.6 pg (27.0-31.0); MEAN CORPUSCULAR HGB CONC 32.6 pg (28.0-36.0); MEAN PLATELET VOLUME 10.2 fl; PLATELET COUNT 108 Th/cmm (150-400); RED BLOOD COUNT 3.11 Mil/cmm (3.80-5.20); RED CELL DISTRIBUTION WIDTH 24.5 % (11.5-20.0); WHITE BLOOD COUNT 15.5 Th/cmm (4.8-10.8)
[2016-08-27 05:28] LABS: BUN/CREATININE RATIO 27.4; CALCIUM SERUM 8.6 mg/dL (8.6-10.3); CARBON DIOXIDE 19.3 mEq/L (21.0-31.0); CHLORIDE 99 mEq/L (98-107); CREATININE - SERUM 3.1 mg/dL (0.6-1.2); GLUCOSE 371 mg/dL (70-105); POTASSIUM SERUM 4.3 mEq/L (3.5-5.1); SODIUM SERUM 129 mEq/L (136-145)
[2016-08-27 05:32] LABS: BUN - UREA NITROGEN 85 mg/dL (7-25)
[2016-08-27] MEDS: INSULIN ASPART SLIDING SCALE 100 UNITS/ML UNIT SUBQ SCH ×5 (06:48→23:57)
[2016-08-27] MEDS: Lactobacillus Rhamnosus 10 Billion CFU Capsule PO SCH (08:12)
[2016-08-27] MEDS: Pantoprazole 40 mg/Packet PO SCH (08:12)
[2016-08-27] MEDS: Chlorhexidine Gluconate 0.12% 15mL Mouthwash MM SCH ×2 (08:14→20:39)
[2016-08-27] MEDS: Insulin Detemir 100 units/mL 10mL Vial SUBQ SCH (09:24)
[2016-08-27 10:36] LABS: ANISOCYTOSIS 2+; BAND NEUTROPHILE 4 % (0-10); EOSINOPHIL 0 % (0-5); MYELOCYTE 1 %; NEUTROPHILS 74 % (40-80); PLATELET ESTIMATE DECREASED PLATELETS (NORMAL); PLATELET MORPHOLOGY GIANT PLATELETS SEEN (NORMAL); POLYCHROMASIA 2+; TOTAL CELLS COUNTED 100
--- NOTE | 2016-08-27 11:54 | Pathology Report ---
[id number] Collection date: 08/23/2016 Surgeon: Dr. Eloina Goldman. Specimen Description: Debrided tissue. Gross Description: Received in formalin are two portions of grayish-brown necrotic-appearing skin and subcutaneous tissue measuring 7 x 7 x 1 cm and 2.5 x 2.5 x 0.3 cm. Sectioning shows ulcerated necrotic-appearing skin and soft tissue. Food Preservation Scientist sections are submitted in one cassette. Microscopic Description: The histologic sections show ulcerated skin with acute suppurative inflammation consisting of large collections of neutrophils within a necrotic background. Diagnosis: Ulcerated necrotic skin and subcutaneous tissue consistent with debridement. [facility]# [id number] [facility]
[2016-08-27] MEDS: DEXTROSE 5% IV SCH (17:39)
[2016-08-27] MEDS: AMIKACIN IV SCH (17:39)
[2016-08-28 02:15] LABS: HEP B CORE IGM Negative (Negative); HEP C ANTIBODY 0.2 s/co ratio (0.0-0.9)
[2016-08-28] MEDS: INSULIN ASPART SLIDING SCALE 100 UNITS/ML UNIT SUBQ SCH ×5 (04:00→20:21)
[2016-08-28 05:07] LABS: WHITE BLOOD COUNT 15.5 Th/cmm (4.8-10.8)
[2016-08-28 05:26] LABS: HEMATOCRIT 29.2 % (35.0-45.0); HEMOGLOBIN 9.8 gm/dL (11.7-16.1); MEAN CELL VOLUME 100.8 fl (81-100); MEAN CORPUSCULAR HEMOGLOBIN 33.7 pg (27.0-31.0); MEAN CORPUSCULAR HGB CONC 33.5 pg (28.0-36.0); MEAN PLATELET VOLUME 11.5 fl; PLATELET COUNT 104 Th/cmm (150-400); RED BLOOD COUNT 2.89 Mil/cmm (3.80-5.20); RED CELL DISTRIBUTION WIDTH 24.9 % (11.5-20.0)
[2016-08-28 05:36] LABS: ANION GAP 15.5 (7.0-16.0); BUN/CREATININE RATIO 29.4; CALCIUM SERUM 8.9 mg/dL (8.6-10.3); CARBON DIOXIDE 20.2 mEq/L (21.0-31.0); CHLORIDE 99 mEq/L (98-107); CREATININE - SERUM 3.5 mg/dL (0.6-1.2); GLUCOSE 303 mg/dL (70-105); POTASSIUM SERUM 3.7 mEq/L (3.5-5.1); SODIUM SERUM 131 mEq/L (136-145)
[2016-08-28 05:52] LABS: BUN - UREA NITROGEN 103 mg/dL (7-25)
[2016-08-28] MEDS: Pantoprazole 40 mg/Packet PO SCH (09:29)
[2016-08-28] MEDS: Lactobacillus Rhamnosus 10 Billion CFU Capsule PO SCH (09:29)
[2016-08-28] MEDS: Chlorhexidine Gluconate 0.12% 15mL Mouthwash MM SCH ×2 (09:31→20:21)
[2016-08-28 09:35] LABS: BAND NEUTROPHILE 13 % (0-10); BASOPHIL 1 % (0-3); CORRECTED WBC 14.9 Th/cmm (4.8-10.8); EOSINOPHIL 2 % (0-5); METAMYELOCYTE 3 % (0-0); NEUTROPHILS 70 % (40-80); TOTAL CELLS COUNTED 100
[2016-08-28] MEDS: Insulin Detemir 100 units/mL 10mL Vial SUBQ SCH ×2 (09:35→17:03)
[2016-08-28 09:36] LABS: ANISOCYTOSIS 2+; PLATELET ESTIMATE DECREASED PLATELETS (NORMAL); PLATELET MORPHOLOGY NORMAL (NORMAL); POLYCHROMASIA 1+
--- NOTE | 2016-08-28 11:21 | General Progress Note ---
Subjective - Review of Systems Service Date: 08/28/16 Events since last encounter: Seen on HD this AM, denies c/o, otherwise exam remains stable Objective - Results Result Diagrams: 08/28/16 04:40 08/28/16 04:40 Recent Labs: Laboratory Last Values WBC 15.5 Th/cmm (4.8-10.8) H 08/28/16 04:40 Corrected WBC (auto) 14.9 Th/cmm (4.8-10.8) H 08/28/16 04:40 RBC 2.89 Mil/cmm (3.80-5.20) L 08/28/16 04:40 Hgb 9.8 gm/dL (11.7-16.1) L 08/28/16 04:40 Hct 29.2 % (35.0-45.0) L 08/28/16 04:40 MCV 100.8 fl (81-100) H 08/28/16 04:40 MCH 33.7 pg (27.0-31.0) H 08/28/16 04:40 MCHC Differential 33.5 pg (28.0-36.0) 08/28/16 04:40 RDW 24.9 % (11.5-20.0) H 08/28/16 04:40 Plt Count 104 Th/cmm (150-400) L 08/28/16 04:40 MPV 11.5 fl 08/28/16 04:40 Neutrophils % 78.9 % (40.0-80.0) 08/26/16 04:51 Band Neutrophils % 13 % (0-10) H 08/28/16 04:40 Lymphocytes % 8.9 % (20.0-50.0) L 08/26/16 04:51 Monocytes % 10.6 % (2.0-10.0) H 08/26/16 04:51 Eosinophils % 0.9 % (0.0-5.0) 08/26/16 04:51 Basophils % 0.7 % (0.0-2.0) 08/26/16 04:51 Neutrophils (Manual) 70 % (40-80) 08/28/16 04:40 Lymphocytes 3 % (20-50) L 08/28/16 04:40 Monocytes 8 % (2-10) 08/28/16 04:40 Eosinophils 2 % (0-5) 08/28/16 04:40 Basophils 1 % (0-3) 08/28/16 04:40 Metamyelocytes 3 % (0-0) H 08/28/16 04:40 Myelocytes 1 % 08/27/16 05:00 Nucleated RBCs 4.0 % (0-0) H 08/28/16 04:40 Platelet Estimate DECREASED PLATELETS (NORMAL) 08/28/16 04:40 Platelet Morphology NORMAL (NORMAL) 08/28/16 04:40 Polychromasia 1+ 08/28/16 04:40 Anisocytosis 2+ 08/28/16 04:40 RBC Morph Micro Appear ABNORMAL (NORMAL) 08/28/16 04:40 PT 14.9 SECONDS (9.5-11.5) H 08/21/16 18:00 INR 1.47 (0.5-1.4) H 08/21/16 18:00 PTT (Actin FS) > 120.0 SECONDS (26.0-38.0) H* 08/21/16 18:00 Specimen Source Arterial 08/23/16 09:15 Sample Site Right Radial 08/23/16 09:15 pH 7.47 (7.35-7.45) H 08/23/16 09:15 pCO2 31.0 mmHg (35.0-45.0) L 08/23/16 09:15 pO2 128.0 mmHg (80.0-100.0) H 08/23/16 09:15 HCO3 22.6 mmol/L (20.0-26.0) 08/23/16 09:15 Base Excess -0.3 mmol/L (-3.0-3.0) 08/23/16 09:15 O2 Saturation 99.0 % (92.0-100.0) 08/23/16 09:15 Jorge Test PASS 08/23/16 09:15 Vent Rate 12 08/23/16 09:15 Inspired O2 30 08/23/16 09:15 Tidal Volume 500 08/23/16 09:15 PEEP 5 08/23/16 09:15 Critical Value PW 08/23/16 09:15 Sodium 131 mEq/L (136-145) L 08/28/16 04:40 Potassium 3.7 mEq/L (3.5-5.1) 08/28/16 04:40 Chloride 99 mEq/L (98-107) 08/28/16 04:40 Carbon Dioxide 20.2 mEq/L (21.0-31.0) L 08/28/16 04:40 Anion Gap 15.5 (7.0-16.0) 08/28/16 04:40 BUN 103 mg/dL (7-25) H* 08/28/16 04:40 Creatinine 3.5 mg/dL (0.6-1.2) H 08/28/16 04:40 Est GFR ( Amer) TNP 08/28/16 04:40 Est GFR (Non-Af Amer) TNP 08/28/16 04:40 BUN/Creatinine Ratio 29.4 08/28/16 04:40 Glucose 303 mg/dL (70-105) H 08/28/16 04:40 POC Glucose 256 MG/DL (70 - 105) H 08/28/16 09:34 Hemoglobin A1c % 7.0 % (4.0-6.0) H 08/24/16 04:35 Calcium 8.9 mg/dL (8.6-10.3) 08/28/16 04:40 Magnesium 2.5 mg/dL (1.9-2.7) 08/28/16 04:40 Total Bilirubin 0.8 mg/dL (0.3-1.0) 08/23/16 04:30 AST 31 U/L (13-39) 08/23/16 04:30 ALT 17 U/L (7-52) 08/23/16 04:30 Alkaline Phosphatase 218 U/L (34-104) H 08/23/16 04:30 Troponin I 0.67 ng/mL (0.01-0.05) H* 08/21/16 17:20 Total Protein 6.4 gm/dL (6.0-8.3) 08/23/16 04:30 Albumin 2.4 gm/dL (3.7-5.3) L 08/23/16 04:30 Globulin 4.0 gm/dL 08/23/16 04:30 Albumin/Globulin Ratio 0.6 (1.0-1.8) L 08/23/16 04:30 Triglycerides 184 mg/dL (<150) H 08/22/16 04:56 Cholesterol 78 mg/dL (<200) 08/22/16 04:56 LDL Cholesterol Direct 33 mg/dL (75-193) L 08/22/16 04:56 HDL Cholesterol 22 mg/dL (23-92) L 08/22/16 04:56 Lipase 18 U/L (11-82) 08/22/16 04:56 TSH 3.51 uIU/ml (0.34-5.60) 08/22/16 04:56 Random Vancomycin 31.1 ug/mL (5.0-40.0) 08/28/16 04:40 Hepatitis A IgM Ab Negative (Negative) 08/25/16 07:07 Hep Bs Antigen Negative (Negative) 08/25/16 07:07 Hep B Core IgM Ab Negative (Negative) 08/25/16 07:07 Hepatitis C Antibody 0.2 s/co ratio (0.0-0.9) 08/25/16 07:07 - Physical Exam Vitals and I&O: Vital Signs Temp 97.5 F 08/28/16 08:00 Pulse 87 08/28/16 10:00 Resp 14 08/28/16 10:00 BP 106/49 08/28/16 10:00 Pulse Ox 99 08/28/16 10:00 Intake & Output 08/27/16 08/28/16 08/28/16 18:59 06:59 18:59 Intake Total 910 770 Output Total 100 200 Balance 810 570 Weight (lbs) 72.439 kg 76.204 kg Intake: Intake, IV Amount 50 50 Cefepime 1 gm In Dextrose 50 50 5% 50 ml @ 100 mls/hr IV Q12HR [facility] Rx#:[id number] Tube Feeding 660 660 Other 200 60 Output: Drainage 0 SACRAL WOUND VAC 0 Urine 0 Stool 100 200 Other: Stool Characteristics Liquid Liquid Brown Brown Active Medications: Current Medications Acetaminophen (Tylenol 650mg/20.3ml Suspension) 160 mg PO Q4HR PRN PRN Reason: pain Albuterol Sulfate (Albuterol 2.5mg/3ml Neb Ud) 2.5 mg HHN Q6HR PRN PRN Reason: Shortness of Breath Stop: 10/21/16 07:34 Last Admin: 08/24/16 07:25 Dose: 2.5 mg Ascorbic Acid (Vitamin C) 500 mg PO DAILY [facility] Stop: 10/21/16 08:59 Last Admin: 08/28/16 09:29 Dose: 500 mg Chlorhexidine Gluconate (Peridex) 15 ml MM 0800,1999 [facility] Stop: 10/21/16 19:59 Last Admin: 08/28/16 09:31 Dose: 15 ml Dextrose (D50w) 50 ml IVP PRN PRN PRN Reason: Blood Glucose less than 70 Stop: 10/21/16 06:24 Last Admin: 08/22/16 17:15 Dose: 50 ml Dextrose (Glutose 40%) 18.75 gm PO PRN PRN PRN Reason: Blood Glucose less than 70 Stop: 10/21/16 06:24 Glucagon (Glucagen) 1 mg IM PRN PRN PRN Reason: Blood Glucose less than 70 Stop: 10/21/16 06:24 Amikacin Sulfate 100 mg/ (Dextrose) 100.4 mls @ 100 mls/hr IV Q24H [facility] Stop: 10/24/16 16:59 Last Admin: 08/27/16 17:39 Dose: 100 mls/hr Cefepime HCl 1 gm/ Sodium (Chloride) 50 mls @ 100 mls/hr IV Q12HR [facility] Stop: 10/27/16 20:59 Insulin Aspart (Novolog Insulin Sliding Scale) 0 units SUBQ Q4HR [facility] PRN Reason: Protocol Stop: 10/26/16 19:59 Last Admin: 08/28/16 09:36 Dose: 7 units Insulin Detemir (Levemir Insulin) 25 units SUBQ BID [facility] PRN Reason: Protocol Stop: 10/26/16 08:59 Last Admin: 08/28/16 09:35 Dose: 25 units Lactobacillus Rhamnosus (Culturelle) 1 each PO DAILY [facility] Stop: 10/24/16 08:59 Last Admin: 08/28/16 09:29 Dose: 1 each Midodrine (Proamatine) 10 mg PO QTUE [facility] Stop: 10/20/16 22:44 Last Admin: 08/22/16 03:52 Dose: 10 mg Miscellaneous (Clinical Monitoring) 1 [facility] PRN PRN PRN Reason: RENAL DOSING Stop: 10/21/16 07:35 Miscellaneous (Vte Chemical Prophylaxis Screen/ Admission) 1 [facility] PRN PRN PRN Reason: PROTOCOL Stop: 10/21/16 11:45 Miscellaneous (Vancomycin Iv Per Pharmacy) 1 [facility] PRN [facility] Stop: 10/22/16 08:44 Miscellaneous (Probiotic Screen) 1 [facility] PRN PRN PRN Reason: PROTOCOL Stop: 10/23/16 14:47 Miscellaneous (Amikacin Iv Per Pharmacy) 1 [facility] PRN PRN PRN Reason: PROTOCOL Stop: 10/23/16 15:42 Pantoprazole Sodium (Protonix) 40 mg PO DAILY [facility] Stop: 10/21/16 08:59 Last Admin: 08/28/16 09:29 Dose: 40 mg General: Alert, Oriented x3 HEENT: Atraumatic Neck: Supple Cardiovascular: Regular rate Lungs: Clear to auscultation Extremities: Edema - Procedures Procedures: Procedures Procedure Code Date MAITE BONE 20 SQ CM/< 66464 08/21/16 EXCISION OF COCCYX, OPEN APPROACH [id number] 08/21/16 RESPIRATORY VENTILATION, GREATER THAN 96 CONSECUTIVE HOURS [id number] 08/21/16 VENT MGMT INPAT INIT DAY 28046 08/21/16 Assessment/Plan - Assessment Assessment: ESRD on HD, TTS Anemia secondary to ESRD Renal osteodystrophy Sacral decubitus ulcer - Plan Plan: HD today on TTS schedule BP controlled, HGB in range Awaiting isolation bed for MDR urine
--- NOTE | 2016-08-28 11:53 | Diagnostic Imaging Report ---
CHEST X-RAY: AP view INDICATION: Pneumonia COMPARISON: 08/23/2016 FINDINGS: Support devices are stable. Mild congestive changes are noted with small effusions. Cardiomegaly is noted. IMPRESSION: Mild congestive changes and small effusions. Pneumonia of the lung bases cannot be excluded. Cardiomegaly and atherosclerotic vascular disease.
[2016-08-28 14:19] LABS: AMIKACIN TROUGH 7.3 ug/mL (1.0-8.0)
[2016-08-28] MEDS ORDERED: Cefepime 1 gm in 0.9% NS 50 mL IV SCH (21:00)
--- NOTE | 2016-08-30 04:47 | Consultation ---
PRIMARY PHYSICIAN: Dr. Hong. REASON FOR CONSULTATION: Pneumonia. HISTORY OF PRESENT ILLNESS: This is a 75-year-old female who was brought to the Emergency with complaint of shortness of breath. The patient was admitted to ICU. Sputum cultures are positive for pseudomonas. Infectious consultation was called. The patient is unable to provide meaningful history. Discussed with the staff. The patient has chronic diarrhea on rectal tube, antibiotic adjusted. The patient was examined as soon as possible. PAST MEDICAL HISTORY: Vent dependent, tracheostomy, PEG placement, diabetes mellitus, decubiti, end-stage renal disease, dialysis. FAMILY HISTORY: Negative. ALLERGIES: None. SOCIAL HISTORY: Nonsmoker, lives in a [facility]. REVIEW OF SYSTEMS: A 14-point review of system negative except above. No fall, trauma, seizure or bleeding. PHYSICAL EXAMINATION: GENERAL: The patient is well-nourished female, ventilator dependent, bedbound, not able to communicate. VITAL SIGNS: Temperature is 97.7, pulse 86, respirations 16, blood pressure 99/47. HEENT: Mild pallor, no icterus or plaque. NECK: Supple____. No thyroid, no cervical lymph node, tracheostomy present. LUNGS: Breath sounds bilateral vesicular decreased. CARDIOVASCULAR: S1, S2. ABDOMEN: Soft, bowel sounds present, rectal tube present. LABORATORY DATA: As follows, pseudomonas on the sputum, ____noted white count 15,000, hemoglobin is 9.8 g, platelets 104. DIAGNOSIS: Pneumonia with pseudomonas. PLAN: The patient is started on vancomycin and Maxipime, we will discontinue Zosyn, supportive care and ____antibiotic to be continued 10 days in the [facility]. Rest of the care as ordered in CPOE. The patient is scheduled for discharge. Thank you, Dr. Hong, for this consultation. JOB# [id number]
== END 2016-08-28 21:40 | DRG 710 ==
LOC: ER 16:44 → ICU 22:15
PROVIDERS: ADMIT Internal Medicine; ATTEND Internal Medicine
PROC: 5A1955Z Respiratory Ventilation, Greater than 96 Consecutive Hours (ICD-10-PCS; principal; 2016-08-21)
PROC: 5A1D60Z (ICD-10-PCS; 2016-08-22)
PROC: 02H633Z Insertion of Infusion Device into Right Atrium, Percutaneous Approach (ICD-10-PCS; 2016-08-22)
PROC: 0QBS0ZZ Excision of Coccyx, Open Approach (ICD-10-PCS; 2016-08-23)
DX: A41.9 Sepsis, unspecified organism (principal); J18.9 Pneumonia, unspecified organism; L89.154 Pressure ulcer of sacral region, stage 4; I13.2 Hypertensive heart and chronic kidney disease with heart failure and with stage 5 chronic kidney disease, or end stage renal disease; J96.10 Chronic respiratory failure, unspecified whether with hypoxia or hypercapnia; A04.7 Enterocolitis due to Clostridium difficile; N18.6 End stage renal disease; E11.22 Type 2 diabetes mellitus with diabetic chronic kidney disease; I50.9 Heart failure, unspecified; R29.810 Facial weakness; I25.10 Atherosclerotic heart disease of native coronary artery without angina pectoris; N25.0 Renal osteodystrophy; D63.1 Anemia in chronic kidney disease; K21.9 Gastro-esophageal reflux disease without esophagitis; Z93.0 Tracheostomy status; Z86.73 Personal history of transient ischemic attack (TIA), and cerebral infarction without residual deficits; Z99.2 Dependence on renal dialysis; Z93.1 Gastrostomy status
CPT/HCPCS: 36415-UA; 36600-90; 70450-TC; 71010-TC; 78226-TC; 80048-TC; 80053-TC; 80061-TC; 80074-90; 80150-TC; 80202-TC; 82803-TC; 82947-TC; 82948-90; 83036-90; 83690-TC; 83735-TC; 84443-TC; 84484-TC; 85007-TC; 85025-TC; 85027-TC; 85610-TC; 87070; 87230-TC; 88304-TC; 90799; 90937; 93005; 93925-TC; 94002; 94003; A9537; J0278; J0692; J1815; J1956; J2543; J3370; J3480; J7030; J7613; X7704; Z7610